=== PATIENT | female | born 1965 | race Two or more races ===

== ENCOUNTER 2024-11-01 09:28 | Day surgery (SDC) | payer MEDICAID, SELFPAY ==
--- NOTE | 2024-10-31 06:44 | EKG_ITS ---
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
[2024-10-31 10:06] VITALS: BMI 31.1
[2024-10-31 11:37] LABS: Alanine Aminotransferase 69 U/L (10-49); Albumin, Serum 4.6 gm/dL (3.5-5.0); Albumin/Globulin Ratio 1.6 (1.2-2.2); Alkaline Phosphatase 108 U/L (46-116); Anion Gap 8 (7-16); Aspartate Amino Transferase 50 U/L (0-34); BUN/Creatinine Ratio 11 Ratio (12-20); Bilirubin,Total 0.6 mg/dL (0.3-1.2); Blood Urea Nitrogen 10 mg/dL (9-23); Calcium 9.1 mg/dL (8.3-10.6); Calcium (Corrected) 9.1 mg/dL (8.5-10.1); Chloride 108 mMol/L (98-107); Creatinine (Component) 0.9 mg/dL (0.6-1.3); Estimated Creatinine Clearance 83.1 mL/min (>60); Globulin 2.8 gm/dL (2.3-3.5); Glucose 110 mg/dL (74-106); Osmolality,Calculated 283 (275-295); Potassium 4.3 mMol/L (3.4-5.1); Sodium 142 mMol/L (136-145); Total Protein 7.4 gm/dL (5.7-8.2); eGFR > 60 See Note
--- NOTE | 2024-10-31 14:53 | SUR.PREOP ---
Pt notified to come in at 0930 tomorrow for surgery.
[2024-11-01] VITALS (8 sets, daily range): BP systolic 113–125; BP diastolic 65–80; PULSE 63–85; RESP 13–22; TEMP 36.2–36.8; O2SAT 95–99; BMI 33.4
--- NOTE | 2024-11-01 10:23 | SUR.PREOP ---
PATIENT UNABLE TO HEAR BILATERALLY WITH ONLY SLIGHT HEARING
--- NOTE | 2024-11-01 14:21 | SUR.OPER ---
Partner, Idalia, updated on case status/progress via phone by Cali ALMONTE at approx. 1420.
--- NOTE | 2024-11-01 15:23 | SUR.PHASEI ---
pt received from OR in recovery bay 5. pt obtunded, breathing unlabored on oxymask 6l, oral airway in place. v/s stable. pt dressing to left ear cdi. report received from Isael ALMONTE and Dr. Calderon.
--- NOTE | 2024-11-01 15:25 | ESOP_ITS ---
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 Right facial nerve monitoring Findings Thickening of the tympanic membrane with a retraction pocket posteriorly and superior with cholesteatoma involvement. There is erosion of the long process of the incus and involvement of it with the cholesteatoma. There was complete erosion of the stapes superstructure. Only the footplate was remaining. The malleus was uninvolved. The chorda tympani was uninvolved and was preserved. The facial nerve and horizontal canal were in their usual location. Mastoid was very sclerotic with disease mucosa at the aditus region with cholesteatoma approaching but not extending into the mastoid cavity. There is severe mucosal disease overlying the stapes footplate as well as the promontory. The cholesteatoma was limited to the region of the incus. Procedure Description Indications: This is a 58-year-old female with chronic draining ears bilaterally. The left ear has had surgery and the infection has been controlled. She wished to have surgery on the right ear as well understanding that this is her only hearing ear and hearing loss is a risk with it. As the risk were discussed in detail as well including facial nerve paralysis decree sense of taste and need for further surgery. Patient was marked and shaved in the preoperative setting then transferred to the operative suite where she was anesthetized and intubated. Timeout was performed. The facial nerve monitoring electrodes were placed in usual fashion for the right facial nerve. Patient was then sterilely prepped and draped. External canal was irrigated with warm saline solution and suctioned and then injected with 1% lidocaine with 1 100,000 dilution epinephrine. Postauricular region was injected as well. Approximately 7 cc total were used. Posterior tympanomeatal flap was developed and the tympanic membrane turned forward and the findings were as noted above. Posterior vascular strip was then developed and I turned my attention postauricularly creating a postauricular incision followed by a palva flap which was then elevated and rotated forward. The vascular strip was elevated as well. Self-retaining retractors were used to hold the flaps in position. Standard canal wall up mastoidectomy was initiated. The mastoid was as described above. Once the attic region was visualized disease mucosa was carefully removed and the cholesteatoma was found approaching the mastoid cavity. At this time I made the decision to convert to a canal wall down mastoidectomy since postoperative care long-term will be limited. The canal wall was taken down to the facial ridge. The bone over the incus was curetted away and the incus elevated with the surrounding cholesteatoma. Disease mucosa around it was vaporized with the CO2 laser being careful not to injure the facial nerve over the chorda tympani nerve. Specimens were taken from the middle ear. The stapes superstructure was not located. The malleus was thoroughly inspected and mobilized. There was no visible cholesteatoma involving it. The facial nerve was identified and then its horizontal segment with the nerve stimulator. No further drilling was performed after identifying the nerve. Mastoid cavity was irrigated with warm saline solution and suction. The incus had been cleaned off and was free of any residual cholesteatoma. I was then able to place the body on the footplate and the residual long process u nderneath the malleus. Bio design graft was then placed underneath the posterior tympanomeatal flap on top of the incus. It was draped into the mastoid cavity as well. Meatoplasty was then performed with the 11 blade and the cautery knife. A portion of the cartilage was incised and freed. The external canal meatus was small but the size was increased by approximately 2- 1/2 times. Surgifoam packing and dipped in Ciprodex was placed on top of the tympanic membrane and the graft. Mupirocin ointment was then placed on top of that. The meatoplasty was packed with Adaptic and a sterile cottonball. Postauricular incision was then closed after draping the posterior vascular strip back over the mastoid bone. It was closed in a multilayer fashion with 4- 0 Vicryl and Dermabond on the skin. Facial nerve monitoring electrodes were removed the patient was awakened and taken recovery room in stable condition Anesthesia GETA Pathology / specimen Other (Middle ear mucosa) Estimated Blood Loss 10 Surgeon Dez Gonzalez DO Surgical Staff Operation Date: 11/01/24 11:45 Case Staff Anesthesiologist: Geo Calderon
[2024-11-01] MEDS: ACETAMINOPHEN IVPB 1,000 MG/100 ML VIAL 250 MG IV (15:55)
--- NOTE | 2024-11-01 17:00 | SUR.PHASEII ---
pt awake and alert, breathing unlabored on room air. v/s stable. pt dressing to left ear cdi. pt able to ambulate to wheelchair with steady gait. d/c instructions given with s/o in room using gluer Lasha grier, all questions answered. pt d/c via wheelchair with all belongings.
== END 2024-11-01 17:00 | disposition home or self-care (01) ==
PROVIDERS: Anesthesiology; PCP Registered Nurse; Referring Provider Otolaryngology; Visit Provider Otolaryngology
PROC: (CPT 69641; principal; 2024-11-01 11:30)
DX: H90.71 Mixed conductive and sensorineural hearing loss, unilateral, right ear, with unrestricted hearing on the contralateral side (principal); H70.11 Chronic mastoiditis, right ear; Z01.810 Encounter for preprocedural cardiovascular examination
CPT/HCPCS: 69644; 36415; 80053; 93005; A4217; A4649; C1763; J0131; J0171; J0690; J1100; J1885; J2250; J2405; J2704; J3010; J3473; J3490; J7040; A9270